=== PATIENT | female | born 1995 | race Caucasian/White ===

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

== ENCOUNTER 2018-11-03 22:33 | Emergency (ER) | payer OTHER ==
[~2018-11-03] VITALS: Ht 162.6 cm; Wt 72.6 kg
--- NOTE | 2018-11-03 22:50 | NUR ---
TO BED # 3 AMBULATORY
[2018-11-03 22:57] VITALS: BP 110/71
--- NOTE | 2018-11-03 23:18 | NUR ---
23/F PRESENTS TO ED WITH SON AND , C/O 4/10 SHARP INTERMITTENT EPIGASTRIC PAIN, X2 DAYS. REPORTS NAUSEA ASSOCIATED WITH . REPORTS BEING 20 WEEKS , A1. REPORTS MILD CONSTIPATION. DENIES FEVER, VOMITING OR DIARRHEA. AOX4, SKIN NORMAL WARM AND DRY, RR EVEN AND UNLABORED. DENIES MED HX; OTC TYLENOL WITH NO RELIEF
[2018-11-04] MEDS ORDERED: NACL 0.9% 1,000 ML IV SCH (00:32)
[2018-11-04] MEDS ORDERED: ALUMINUM HYD/MAG/SIMETHICONE 30 ML, DICYCLOMINE HCL LIQUID 20 MG, LIDOCAINE VISCOUS 2% ... PO ONE ×3 (00:35)
[2018-11-04 00:54] LABS: BASOPHILS # (AUTO) 0.1 K/uL (0.00-0.22); BASOPHILS % (AUTO) 0.6 % (0.0-2.0); EOSINOPHILS # (AUTO) 0.5 K/uL (0-0.4); EOSINOPHILS % (AUTO) 5.2 % (0.0-4.0); HEMATOCRIT 32.9 % (36-48); HEMOGLOBIN 11.2 g/dL (12.0-16.0); LYMPHOCYTES # (AUTO) 3.1 K/uL (2.5-16.5); LYMPHOCYTES % (AUTO) 29.9 % (20.5-51.1); MEAN CORPUSCULAR HEMOGLOBIN 30 pg (27-31); MEAN CORPUSCULAR HGB CONC 34 g/dL (33-37); MEAN CORPUSCULAR VOLUME 88.9 fL (80-94); MONOCYTES # (AUTO) 0.9 K/uL (0.8-1.0); MONOCYTES % (AUTO) 8.5 % (1.7-9.3); NEUTROPHILS # (AUTO) 5.8 K/uL (1.8-7.7); NEUTROPHILS % (AUTO) 55.8 % (42.2-75.2); PLATELET COUNT (AUTO) 246 K/uL (140-450); RED CELL DISTRIBUTION WIDTH 13.9 % (11.6-13.7); WHITE BLOOD COUNT (AUTO) 10.4 K/uL (4.8-10.8)
[2018-11-04 00:55] LABS: APPEARANCE,URINE SL CLOUDY (CLEAR); BILIRUBIN,URINE NEGATIVE (NEGATIVE); BLOOD, URINE NEGATIVE (NEGATIVE); COLOR,URINE YELLOW (YELLOW); LEUKOCYTE ESTERASE ,URINE NEGATIVE (NEGATIVE); NITRITE, URINE NEGATIVE (NEGATIVE); UGLUCOSE NEGATIVE (NEGATIVE)
[2018-11-04 01:04] LABS: ANION GAP 12.7 (8-16); CARBON DIOXIDE 23.1 mmol/L (21-32); CREATININE 0.5 mg/dL (0.6-1.3); POTASSIUM 3.8 mmol/L (3.5-5.1)
[2018-11-04 01:10] LABS: TOTAL BILIRUBIN 0.3 mg/dL (0.0-1.0)
--- NOTE | 2018-11-04 01:59 | NUR ---
PT LAYING IN BED, AND SON AT BEDSIDE. VSS, RR EVEN AND UNLABORED. REPORTS 1/10 PAIN, REPORTS RELIEF AFTER MEDS. ALL NEEDS MET.
[2018-11-04 02:09] VITALS: BP 102/49
== END 2018-11-04 02:09 | disposition home or self-care (01) ==
LOC: MED 22:33
DX: O21.0 Mild hyperemesis gravidarum (principal); O26.892 Other specified pregnancy related conditions, second trimester; K29.70 Gastritis, unspecified, without bleeding; Z3A.20 20 weeks gestation of pregnancy; Z88.8 Allergy status to other drugs, medicaments and biological substances
CPT/HCPCS: 36415; 80053; 81003; 81025; 82150; 83690; 84702; 85025; 96360; 99283; J7030

== ENCOUNTER 2020-10-04 15:34 | Emergency (ER) | payer OTHER ==
[~2020-10-04] VITALS: Ht 162.6 cm; Wt 79.8 kg
[2020-10-04 15:37] VITALS: BP 112/73
--- NOTE | 2020-10-04 15:48 | NUR ---
PT AMBULATED TO BED 03.
--- NOTE | 2020-10-04 15:50 | NUR ---
25 Y/O FEMALE FROM HOME C/O RLQ ABD PAIN S/P FALLING WHILE HIKING 2 DAYS AGO. PT DENIES N/V/D. NO BRUISING NOTED TO LOWER ABD. SKIN WARM, DRY, INTACT. 4/10 SHARP PAIN AT THIS TIME. DENIES LOC WHEN FALLING. MEDHX: ANEMIA
--- NOTE | 2020-10-04 15:51 | NUR ---
ALO THAKKAR AT BEDSIDE EXAMINING PATIENT
--- NOTE | 2020-10-04 16:00 | NUR ---
Dr. Precaido is evaluating patient at bedside with US
[2020-10-04] MEDS ORDERED: NAPR-54 PO (16:21)
[2020-10-04 16:27] VITALS: BP 112/73
--- NOTE | 2020-10-04 16:27 | NUR ---
dcPatient discharged with v/s stable. Written and verbal after care instructions given and explained. Patient alert, oriented and verbalized understanding of instructions. Ambulatory with steady gait. All questions addressed prior to discharge. ID band removed. Patient advised to follow up with PMD. Rx of Naproxen given. Patient educated on indication of medication including possible reaction and side effects. Opportunity to ask questions provided and answered.
== END 2020-10-04 16:27 | disposition home or self-care (01) ==
LOC: MED 15:34
DX: S30.1XXA Contusion of abdominal wall, initial encounter (principal); Z88.8 Allergy status to other drugs, medicaments and biological substances; Z79.899 Other long term (current) drug therapy; W19.XXXA Unspecified fall, initial encounter; Y93.01 Activity, walking, marching and hiking; Y92.89 Other specified places as the place of occurrence of the external cause; Y99.8 Other external cause status
CPT/HCPCS: 81002; 81025; 99281; 99284

== ENCOUNTER 2021-04-08 20:42 | Emergency (ER) | payer OTHER ==
[~2021-04-08] VITALS: Ht 162.6 cm; Wt 77.1 kg
[~2021-04-08 20:42] MED LIST: NAPR-54 PO
[2021-04-08 20:46] VITALS: BP 143/71
--- NOTE | 2021-04-08 21:25 | NUR ---
PT TAKEN TO BED 5
--- NOTE | 2021-04-08 21:44 | NUR ---
26 YO FEMALE BIB SELF W C/O OF UPPER LIP LAC S/P TRIP ON A TOY FALLING AND CUTTING LIP ON GUITAR AMP X1.5 HOURS AGO, +LIP AND TEETH PAIN. PT UNSURE IF SHE HIT HER HEAD, DENIES LOC, REPORTS HEADACHE AND DIZZINESS. LAC NOTED TO PT UPPER LIP CUTTING ALL THE WAY THROUGH, BLEEDING CONTROLLED. NO INJURY TO TEETH NOTED, PT WEARING BRACES, SEEM INTACT. PT ALSO REPORTS SHE IS 8 WEEKS PREG, DENIES HITTING ABDOMEN. DENIES ABD TATYANA, OR VAG BLEED. PT GCS 15. PT SITTING IN BED LOCKED IN LOWEST POSITION W X1 SIDERAIOL UP. BREATHING EVEN AND UNLABORED. NAD NOTED, WILL CONTINUE TO MONITOR. PMH:ANEMIA ALLERGIES: DEMEROL
--- NOTE | 2021-04-08 22:04 | NUR ---
DR MENDEZ EXAMINING PT.
[2021-04-08] MEDS ORDERED: LIDOCAINE 2% 1000 MG/50 ML VIAL INJ ONE (22:20)
--- NOTE | 2021-04-08 23:58 | NUR ---
AT BEDSIDE FOR PT TRT.
[2021-04-09 00:14] VITALS: BP 118/61
[2021-04-10] MEDS ORDERED: AMOX-999 PO (16:45)
== END 2021-04-09 00:14 | disposition home or self-care (01) ==
LOC: MED 20:42
DX: O9A.211 Injury, poisoning and certain other consequences of external causes complicating pregnancy, first trimester (principal); S01.511A Laceration without foreign body of lip, initial encounter; Z3A.08 8 weeks gestation of pregnancy; W01.0XXA Fall on same level from slipping, tripping and stumbling without subsequent striking against object, initial encounter; Y92.89 Other specified places as the place of occurrence of the external cause; Y93.89 Activity, other specified; Y99.8 Other external cause status
CPT/HCPCS: 12011; 99282; J2001

== ENCOUNTER 2021-04-10 16:09 | Emergency (ER) | payer OTHER ==
[~2021-04-10] VITALS: Ht 162.6 cm; Wt 77.1 kg
[2021-04-10 16:14] VITALS: BP 123/71
--- NOTE | 2021-04-10 16:37 | NUR ---
26/ BIB SELF FOR WOUND CHECK. PATIENT STATES SHE HAD SUTURES PLACED TWO DAYS TO HER UPPER LIP AND WAS TOLD TO RETURN TODAY FOR RECHECK. PATIENT DENIES DRAINAGE, BLEEDING, FEVER OR CHILLS. STATES CONSTANT THROBBING 5/10 PAIN, REPORTS TAKING TYLENOL WITH NO RELIEF, DENIES ANY OTHER COMPLAINTS OR CONCERNS AT THIS TIME.
[2021-04-10] MEDS ORDERED: AMOX-999 PO (16:45)
[2021-04-10 16:50] VITALS: BP 123/71
--- NOTE | 2021-04-10 16:50 | NUR ---
Patient discharged with v/s stable. Written and verbal after care instructions ABOUT WOUND INFECTION given and explained. Patient alert, oriented and verbalized understanding of instructions. Ambulatory with steady gait. All questions addressed prior to discharge. ID band removed. Patient advised to follow up with PMD. Rx of AUGMENTIN 500-125 TABLET given. Patient educated on indication of medication including possible reaction and side effects. Opportunity to ask questions provided and answered.
== END 2021-04-10 16:50 | disposition home or self-care (01) ==
LOC: MED 16:09
DX: O71.89 Other specified obstetric trauma (principal); S01.511D Laceration without foreign body of lip, subsequent encounter; F17.200 Nicotine dependence, unspecified, uncomplicated; Z79.899 Other long term (current) drug therapy; Z90.49 Acquired absence of other specified parts of digestive tract; Z88.8 Allergy status to other drugs, medicaments and biological substances; X58.XXXD Exposure to other specified factors, subsequent encounter; Z3A.08 8 weeks gestation of pregnancy
CPT/HCPCS: 99283

== ENCOUNTER 2021-07-23 08:04 | Emergency (ER) | payer OTHER ==
[~2021-07-23] VITALS: Ht 162.6 cm; Wt 77.1 kg
[~2021-07-23 08:04] MED LIST changes: +AMOX-999 PO
[2021-07-23 08:07] VITALS: BP 132/77
--- NOTE | 2021-07-23 08:16 | NUR ---
AT PT BEDSIDE
[2021-07-23] MEDS: ONDANSETRON 4 MG/2 ML VIAL IVP ONE (08:38)
[2021-07-23] MEDS: NACL 0.9% 1,000 ML IV ONE (08:42)
--- NOTE | 2021-07-23 08:44 | NUR ---
ULTRASOUND AT PT BEDSIDE
--- NOTE | 2021-07-23 08:50 | NUR ---
LAB AT PATIENT BEDSIDE
--- NOTE | 2021-07-23 09:00 | NUR ---
26 YO FEMALE C/O MID ABDOMINAL PAIN, N/V X 2 DAYS. ANDRADE X LAST NIGHT. LMP 02/08/21. 20 WEEKS 4 DAYS. PATIENTS . PT. DENIIES SOB, FEVER OR CHILLS, DYSURIA OR URGENCY. PT DENIES VAGINAL BLEEDING OR DISCHARGE. PT A&O X4.BED IN LOWEST POSITION, BED RAIL X1. PMH: TOSILLECTOMY NKA MEDS: DENIES
--- NOTE | 2021-07-23 09:05 | NUR ---
PT AMBULATED TO RESTROOM
[2021-07-23 09:10] LABS: BASOPHILS # (AUTO) 0.1 K/uL (0.00-0.22); BASOPHILS % (AUTO) 0.4 % (0.0-2.0); EOSINOPHILS # (AUTO) 0.1 K/uL (0-0.4); EOSINOPHILS % (AUTO) 1.1 % (0.0-4.0); HEMATOCRIT 33.4 % (36-48); HEMOGLOBIN 11.5 g/dL (12.0-16.0); LYMPHOCYTES # (AUTO) 2.8 K/uL (2.5-16.5); LYMPHOCYTES % (AUTO) 24.5 % (20.5-51.1); MEAN CORPUSCULAR HEMOGLOBIN 31 pg (27-31); MEAN CORPUSCULAR HGB CONC 34 g/dL (33-37); MEAN CORPUSCULAR VOLUME 89.1 fL (80-94); MONOCYTES # (AUTO) 0.8 K/uL (0.8-1.0); MONOCYTES % (AUTO) 6.8 % (1.7-9.3); NEUTROPHILS # (AUTO) 7.7 K/uL (1.8-7.7); NEUTROPHILS % (AUTO) 67.2 % (42.2-75.2); PLATELET COUNT (AUTO) 271 K/uL (140-450); RED BLOOD CELL COUNT(AUTO) 3.75 MIL/uL (4.20-5.40); RED CELL DISTRIBUTION WIDTH 12.9 % (11.6-13.7); WHITE BLOOD COUNT (AUTO) 11.4 K/uL (4.8-10.8)
[2021-07-23 10:08] LABS: ALBUMIN 2.9 g/dL (3.4-5.0); ANION GAP 12.2 (8-16); CREATININE 0.7 mg/dL (0.6-1.3); POTASSIUM 3.2 mmol/L (3.5-5.1); TOTAL BILIRUBIN 0.4 mg/dL (0.0-1.0)
[2021-07-23] MEDS ORDERED: ONDA-188 PO (10:17)
[2021-07-23 10:30] VITALS: BP 118/60
--- NOTE | 2021-07-23 10:31 | NUR ---
Patient discharged with v/s stable. Written and verbal after care instructions given and explained. Patient alert, oriented and verbalized understanding of instructions. Ambulatory with steady gait. All questions addressed prior to discharge. ID band removed. Patient advised to follow up with PMD. Rx ZOFRAN of given. Patient educated on indication of medication including possible reaction and side effects. Opportunity to ask questions provided and answered.
== END 2021-07-23 10:31 | disposition home or self-care (01) ==
LOC: MED 08:04
DX: R10.84 Generalized abdominal pain (principal); R11.2 Nausea with vomiting, unspecified; Z88.5 Allergy status to narcotic agent
CPT/HCPCS: 36415; 76805; 80053; 81002; 83690; 85025; 96361; 96374; 99284; J2405; J7030; Q0092

== ENCOUNTER 2022-10-14 12:04 | Emergency (ER) | payer OTHER ==
[~2022-10-14] VITALS: Ht 162.6 cm; Wt 85.3 kg
[~2022-10-14 12:04] MED LIST changes: +ONDA-188 PO
[2022-10-14 12:14] VITALS: BP 116/71
[2022-10-14] MEDS ORDERED: IBUP-1842 PO (12:51)
[2022-10-14] MEDS ORDERED: CIPR7.5S RIGHT EAR (12:51)
[2022-10-14 14:33] VITALS: BP 116/71
--- NOTE | 2022-10-14 14:33 | NUR ---
Patient discharged with v/s stable. Written and verbal after care instructions given and explained. Patient alert, oriented and verbalized understanding of instructions. Ambulatory with steady gait. All questions addressed prior to discharge. ID band removed. Patient advised to follow up with PMD. Rx of CIPROFLOXACIN, MOTRIN (SENT) given. Patient educated on indication of medication including possible reaction and side effects. Opportunity to ask questions provided and answered.
== END 2022-10-14 14:33 | disposition home or self-care (01) ==
LOC: MED 12:04
DX: H60.91 Unspecified otitis externa, right ear (principal); Z88.8 Allergy status to other drugs, medicaments and biological substances; Z79.899 Other long term (current) drug therapy
CPT/HCPCS: 99283